=== PATIENT | male | born 1975 | race Two or more races ===

== ENCOUNTER 2022-11-23 01:23 | Emergency (ER) | payer MEDICAID ==
[~2022-11-23] VITALS: Ht 177.8 cm; Wt 81.8 kg
[2022-11-23 02:01] VITALS: BP 149/84; PULSE 85; RESP 16; TEMP 98.7
[2022-11-23] MEDS ORDERED: IBUP-2280 PO (04:23)
[2022-11-23] MEDS ORDERED: IBUPROFEN 600 MG TABLET PO ONE (04:30)
== END 2022-11-23 04:40 | disposition home or self-care (01) ==
LOC: EMS 01:27
DX: M79.675 Pain in left toe(s) (principal); F41.9 Anxiety disorder, unspecified; F17.210 Nicotine dependence, cigarettes, uncomplicated; F12.90 Cannabis use, unspecified, uncomplicated
CPT/HCPCS: 99283